=== PATIENT | male | born 1965 | race Caucasian/White ===

== ENCOUNTER 2017-02-08 18:08 | Emergency (ER) | payer SELFPAY ==
[~2017-02-08] VITALS: Ht 175.3 cm; Wt 78.2 kg
[2017-02-08 18:11] VITALS: BP 143/92; PULSE 111; RESP 12; O2SAT 97
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
[2017-02-08 19:29] VITALS: BP 149/95; PULSE 110; RESP 16; O2SAT 97
== END 2017-02-08 19:28 | disposition home or self-care (01) ==
LOC: SED 18:08
DX: Z04.1 Encounter for examination and observation following transport accident (principal); Z02.79 Encounter for issue of other medical certificate